=== PATIENT | female | born 1945 | race Caucasian/White ===

== ENCOUNTER 2018-12-13 22:26 | Inpatient (IN) | payer OTHER ==
[~2018-12-13] VITALS: Ht 162.6 cm; Wt 70.8 kg
--- NOTE | 2018-12-13 22:36 | NUR ---
PT BIB AMBULANCE FOR C/O OF A FALL THAT HAPPENED APPROX 30MINS AGO. PER AT BEDSIDE PT FELL APPROX 2 FT OFF THE BED AND STATES HIS IS UNSURE IF PT HIT HER HEAD. PER MEDICS PT IS ON BLOOD THINNERS. PT PERRLA. PT COMPLAINS OF A HEADACHE TO THE OCCIPITAL REGION OF HER HEAD THAT SHE RATES A 6/10, NO OBVIOUS INJURY NOTED. PT HAS NO OTHER COMPLAINTS. PT HYPOTENSIVE WITH A BP IN THE 70'S. PT PLACED ON FULL PLATINUMSMITH. PT IS A/O X4. RESP ARE EQUAL AND UNLABORED. NO ACUTE DISTRESS NOTED. PTS AT BEDSIDE. MD BOOTHE AT BEDSIDE FOR MSE.
--- NOTE | 2018-12-13 22:57 | NUR ---
PT STARTED ON 500MLS OF NS WO PER MD BOOTHE VERBAL ORDER.
[2018-12-13 23:52] LABS: BASOPHIL % 0.6 % (0-2); PLATELET COUNT 273 x10^3mcL (130-400); RED CELL DISTRIBUTION WIDTH 14.3 % (11.5-14.5)
[2018-12-14] VITALS (7 sets, daily range): BP systolic 100–154; BP diastolic 56–75; Ht 162.6 cm; Wt 70.8 kg
[2018-12-14 00:08] LABS: CHLORIDE SERUM 101 mmol/L (98-107); CREATININE SERUM 0.8 mg/dL (0.6-1.0); GLUCOSE SERUM 96 mg/dL (74-106); POTASSIUM SERUM 3.9 mmol/L (3.5-5.1); SODIUM SERUM 133 mmol/L (136-145)
--- NOTE | 2018-12-14 00:10 | NUR ---
PT TRANSPORTED TO CT BY MYSELF AND HAIDER FROM RADIOLOGY. PT KEPT ON FULL POSTING MACHINE OPERATOR. PT TOERLATED WELL.
[2018-12-14 00:14] LABS: ALKALINE PHOSPHATASE 71 U/L (46-116); ALT/SGPT 11 U/L (14-59); AST/SGOT 10 U/L (15-37); BILIRUBIN TOTAL 0.3 mg/dL (0.20-1.00)
[2018-12-14 00:15] LABS: ALBUMIN 2.7 g/dL (3.4-5.0); TOTAL PROTEIN, SERUM 5.5 g/dL (6.4-8.2)
--- NOTE | 2018-12-14 00:20 | NUR ---
XRAY AT BEDSIDE.
--- NOTE | 2018-12-14 00:30 | NUR ---
PER DR BOOTHE, ADMINISTER LEVOFLOXACIN AND CLEOCIN AND DO NOT ADMINISTER ROCEPHIN AND AZITHROMYCIN. NOT GIVEN ON EMAR.
[2018-12-14 01:01] LABS: microscopic required? YES; urine erythrocyte NEGATIVE (NEGATIVE)
[2018-12-14] MEDS ORDERED: LOT20 PO (01:16)
[2018-12-14] MEDS ORDERED: FLUOXETINE40 MG PO (01:16)
[2018-12-14] MEDS ORDERED: TOPAMAX50 M1 PO (01:16)
[2018-12-14] MEDS ORDERED: PROPRANOLOL HYD80 MG PO (01:17)
[2018-12-14] MEDS ORDERED: XARELTO10 M1 PO (01:17)
[2018-12-14] MEDS ORDERED: VERAPAMIL HCL240 MG PO (01:17)
[2018-12-14] MEDS ORDERED: CENTRUM SILVER1 EACH PO (01:18)
[2018-12-14] MEDS ORDERED: OLANZAPINE10 MG PO (01:19)
[2018-12-14] MEDS ORDERED: PAMELOR25 MG PO (01:19)
[2018-12-14] MEDS ORDERED: LIPI20 PO ×2 (01:19→01:21)
[2018-12-14] MEDS ORDERED: LORAZEPAM1 MG PO (01:19)
[2018-12-14] MEDS ORDERED: PROAIR HFA8.5 GM IH (01:19)
[2018-12-14] MEDS ORDERED: TRELEGY ELLIPT1 EACH IH (01:19)
[2018-12-14] MEDS ORDERED: AMBIEN10 MG PO (01:20)
[2018-12-14] MEDS ORDERED: MIRTAZAPINE45 M1 PO (01:20)
[2018-12-14] MEDS ORDERED: BENZTROPINE MESY1 MG PO (01:20)
[2018-12-14] MEDS ORDERED: AMANTADINE HCL100 M1 PO (01:20)
[2018-12-14] MEDS ORDERED: PANTOPRAZOLE SO40 M1 PO (01:20)
[2018-12-14] MEDS ORDERED: SINEMET 25-1001 TAB PO (01:21)
[2018-12-14] MEDS ORDERED: LACTULOSE10 GM/152 PO (01:21)
[2018-12-14] MEDS ORDERED: TERAZOSIN HCL2 MG PO (01:21)
[2018-12-14] MEDS ORDERED: TRAZODONE50 M1 PO (01:21)
[2018-12-14 05:02] LABS: BASOPHIL % 0.6 % (0-2); PLATELET COUNT 268 x10^3mcL (130-400); RED CELL DISTRIBUTION WIDTH 14.9 % (11.5-14.5)
[2018-12-14 05:09] LABS: CALCIUM 8.1 mg/dL (8.5-10.1); CARBON DIOXIDE 22.6 mmol/L (21-32); CHLORIDE SERUM 103 mmol/L (98-107); CREATININE SERUM 0.8 mg/dL (0.6-1.0); GLUCOSE SERUM 91 mg/dL (74-106); SODIUM SERUM 133 mmol/L (136-145)
--- NOTE | 2018-12-14 07:20 | NUR ---
RECIEVED REPORT FROM JESUS MANUEL PUENTE TO ASSUME ALL CARES. ALL QUESTIONS AND CONCERNS ADDRESSED. WILL CONTINUE TO MONITOR.
--- NOTE | 2018-12-14 09:49 | NUR ---
DR. PERALES, RESIDENTS, STACKER OPERATOR AND PRIMARY RN AT BEDSIDE FOR MORNING ROUNDS. PLAN OF CARE DISCUSSED WITH PT AND PT'S . PT TO HAVE SWALLOW EVAL, PHYSICAL THERAPY EVAL, OK FOR OUTSIDE FOOD AND PT STABLE TO TRANSFER TO [facility]. PRIMARY RN AWARE.
--- NOTE | 2018-12-14 13:57 | NUR ---
REPORT GIVEN TO JESUS MANUEL EM PRIOR TO PATIENT BEING TRANSFERRED TO TELE FLOOR. ALL QUESTIONS AND CONCERNS ADDRESSED. PATIENT TRANSFERRED TO TELE VIA BED ATTACHED TO TELE BOX ACCOMPANIED BY NURSE. VSS. ALL BELONGINGS SENT WITH PATIENT. PATIENT'S ACCOMPANIED US TO THE NEW ROOM. NO INCIDENCE OCCURRED.
--- NOTE | 2018-12-14 13:57 | NUR ---
REC ICU TRANSFER VIA GURNEY. AA/O X2 TO SELF AND PLACE, BY HER SIDE. BREATHING EVEN AND UNLABORED ON RA, NO ACUTE RESP DISTRESS OR SOB NOTED, RT PROTOCAL IN PLACE. BOWEL SOUNDS ACTIVE IN ALL FOUR QUADS. VALERA INTACT AND PATIENT, CLOUDY YELLOW URINE NOTED, 700ML/ HR NOTED. OPTIFORM NOTED TO COCCYX AREA DUE TO BLANCHABLE RENDESS. CDI. IV TO THE LFA INTACT AND PATENT, RAC INTACT AND PATENT. WILL CONTINUE TO MONITOR. SCD'S INPLACE.
--- NOTE | 2018-12-14 15:40 | NUR ---
ASSISTED PT WITH RIGHT SIDE REPOSTION, CHANGED DRESS TO COCCYX AREA, CDI. WILL CONTINUE TO MONITOR.
--- NOTE | 2018-12-14 18:40 | NUR ---
PT WAS SEEN FOR DYSPHAGIA. PT WAS ABLE TOS AFELY SWALLOW MS DIET WITH THIN LIQUID WITHOUT S/S OF ASPIRATION. RECOMMENDATION MS DIET WITH THIN LIQUID SMALL BITES AND SIPS ONLY.
--- NOTE | 2018-12-14 18:45 | NUR ---
NO ACUTE CHANGES AT THIS TIME, NO ACUTE RESP DISTRESS OR SOB NOTED. DENIES ANY DISCOMFORT AT THIS TIME. IV TO THE RAC AND LFA INTACT AND PATENT/ BOTH HEPLOCKED. VALERA INTACT AND PATENT DRAINING YELLOW URINE. WILL ENODRSE TO INCOMING RN.
--- NOTE | 2018-12-14 19:10 | NUR ---
RECEIVED PT FROM PREVIOUS SHIFT NURSE. PT AOX2, ORIENTED TO SELF/PLACE. ON TELE #25, SR, HR 70, DENIES CP/PRESSURE. DENIES SOB/DIFFICULTY BREATHING, ON RA. VALREA CATH IN PLACE. BLANCHABLE REDNESS TO COCCYX, OPTIFOAM IN PLACE. IV TO RAC, LFA. INTACT AND PATENT. BED IN LOWEST POSITION. CALL LIGHT WITHIN REACH. WILL CONTINUE TO MONITOR.
[2018-12-14 19:14] LABS: AMPHETAMINE QUAL UR NONE DETECTED (See below)
--- NOTE | 2018-12-15 02:30 | NUR ---
PT RESTING IN BED. RR EVEN AND UNLABORED. IN NO ACUTE DISTRESS. CALL LIGHT WITHIN REACH. BED IN LOWEST POSITION. WILL CONTINUE TO MONITOR.
[2018-12-15 05:36] VITALS: BP 133/73
[2018-12-15 08:25] VITALS: BP 133/75
[2018-12-15 13:26] VITALS: BP 112/63
--- NOTE | 2018-12-15 15:07 | NUR ---
PHYSICAL THERAPY DAILY NOTES CO-SIGN All documentation done by the Phlebotomist for 12/15/18 has been reviewed. I agree with the documentation. Reviewed/Co-Signed by: Juana Dean PT Documentation Done by:CARMEN BARRERA PTA
--- NOTE | 2018-12-15 15:51 | NUR ---
SCREEN FOR LOW ANGIE SCALE AT RISK PRESSURE ULCER INJURY PREVENTION INTERVENTIONS IN PLACE. -TURN AND REPOSITION PATIENT Q 2H OFFLOAD LEFT AND RIGHT HIPS -ASSESS AND MONITOR SKIN CONDITION DURING POSITION CHANGE -OFFLOAD BILATERAL HEELS BY PLACING PILLOWS UNDER CALVES AT ALL TIMES, UNLESS OTHERWISE CONTRAINDICATED -PRESSURE REDISTRIBUTION SURFACE THERAPY -KEEP SKIN CLEAN AND DRY AT ALL TIMES.
[2018-12-15 16:23] VITALS: BP 103/55
[2018-12-15 16:55] LABS: CALCIUM 8.3 mg/dL (8.5-10.1); CARBON DIOXIDE 24.4 mmol/L (21-32); CHLORIDE SERUM 100 mmol/L (98-107); CREATININE SERUM 0.7 mg/dL (0.6-1.0); GLUCOSE SERUM 87 mg/dL (74-106); POTASSIUM SERUM 3.8 mmol/L (3.5-5.1); SODIUM SERUM 132 mmol/L (136-145)
[2018-12-15 17:11] LABS: BASOPHIL % 1.2 % (0-2); PLATELET COUNT 287 x10^3mcL (130-400); RED CELL DISTRIBUTION WIDTH 14.3 % (11.5-14.5)
--- NOTE | 2018-12-15 19:29 | NUR ---
REPORT GIVEN TO FUNDRAISING MANAGER NURSE AT THE BEDSIDE, PT AWAKE AND ALERT FOR REPORT, IN NAD, NO NEW EVENTS TO REPORT. CARE ENDORED
--- NOTE | 2018-12-15 20:00 | NUR ---
RECEIVED PT IN BED, ALERT AND ORIENTED. FORGETFUL AT TIMES. ABLE TO FOLLOW SOME COMMANDS. DENIES HEADACHE/DIZZINESS. RESP. EVEN AND UNLABORED. LUNG SOUNDS CLEAR BILAT. ON ROOM AIR, NO ACUTE DISTRESS NOTED. PACED ON DEMAND ON TELE, DENIES CP. HL X2, INTACT AND PATENT. AFEBRILE AND VITAL SIGNS STABLE.VALERA CATH INTACT AND DRAINING YELLOW COLOR URINE.TURNED AND REPOSIIONED. HS CARE DONE. CALL LIGHT WITHIN REACH. WILL CONTINUE TO MONITOR.
--- NOTE | 2018-12-15 21:24 | NUR ---
TURNED AND REPOSITIONED FOR COMFORT. NO COMPLAINTS NOTED AT THIS TIME. RESTING QUIETLY. CALL LIGHT WITHIN REACH. WILL CONTINUE TO MONITOR.
[2018-12-15 21:32] VITALS: BP 111/66
--- NOTE | 2018-12-15 23:59 | NUR ---
EYES CLOSED, APPEARS ASLEEP, EASILY AROUSABLE. RESP. EVEN AND UNLABORED. NO ACUTE DISTRESS NOTED.CALL LIGHT WITHIN REACH. WILL CONTINUE TO MONITOR.
[2018-12-16 06:04] VITALS: BP 133/68
--- NOTE | 2018-12-16 06:31 | NUR ---
RESP. EVEN AND UNLABORED. ON ROOM AIR, NO ACUTE DISTRESS NOTED. SLEPT WELL, NO SIGNIFICANT CHANGE NOTED IN PT,S CONDITION. AFEBRILE AND VITAL SIGNS STABLE. DUE MEDS GIVEN ORDERED, KYUNG. WELL. TURNED AND REPOSITIONED Q2HRS AND PRN. VALERA CATH INTACT AND PATENT. CARE DONE. KEPT COMFORTABLE. CALL LIGHT WITHIN REACH. WILL CONTINUE TO MONITOR.
[2018-12-16 07:00] LABS: BASOPHIL % 0.4 % (0-2); PLATELET COUNT 276 x10^3mcL (130-400); RED CELL DISTRIBUTION WIDTH 14.2 % (11.5-14.5)
--- NOTE | 2018-12-16 07:07 | NUR ---
RECEIVED REPORT FROM SHANON KEN. PATIENT [id number] COMFORTABLE IN BED. IV TO LFA AND RAC ARE BOTH PATENT AND INTAT. NO REDNESS OR PAIN. PT ON ROOM AIR. NO C/O SOB AND NO DISTRESS NOTED. TELE # [address] PT DENIES CHEST PAIN. VALERA IN PLACE DRAINING YELLOW URINE. ALL QUESTIONS AND CONCERNS ADDRESSED.
[2018-12-16 07:16] LABS: CALCIUM 8.3 mg/dL (8.5-10.1); CARBON DIOXIDE 25.6 mmol/L (21-32); CHLORIDE SERUM 96 mmol/L (98-107); CREATININE SERUM 0.6 mg/dL (0.6-1.0); GLUCOSE SERUM 83 mg/dL (74-106); MAGNESIUM 1.7 mg/dL (1.8-2.4); PHOSPHOROUS 3.1 mg/dL (2.5-4.9); POTASSIUM SERUM 3.8 mmol/L (3.5-5.1); SODIUM SERUM 129 mmol/L (136-145)
[2018-12-16 07:25] VITALS: BP 140/77
--- NOTE | 2018-12-16 07:50 | NUR ---
DR ACKERMAN PAGED TO NOTIFY OF NA 129 AND MAG 1.7 AND REQUEST COVERAGE. AWAITING RESPONSE.
--- NOTE | 2018-12-16 08:45 | NUR ---
IN TO SEE PATIENT AND ADMINISTER MEDICATION. PT WOULD LIKE TO WAIT UNTIL HER ARRIVES TO TAKE MEDICATION. WILL RECHECK IN 30 MINUTES.
--- NOTE | 2018-12-16 10:58 | NUR ---
BLANE FROM FEED MIXER HELPER IN TO SEE PATIENT AND DISCUSS ACCEPTANCE AT [facility]. PT TO TRANSFER TOMORROW. PT AND VERBALIZED UNDERSTANDING AND AGREE ON TRANSFER TO [facility].
[2018-12-16 12:00] VITALS: BP 141/71
--- NOTE | 2018-12-16 12:56 | NUR ---
IN TO SEE PATIENT AND ADMINISTER MEDICATION. PT RESTING COMFORTABLY IN BED ALL OTHER NEEDS MET.
--- NOTE | 2018-12-16 13:58 | NUR ---
IN TO SEE PATIENT AND ASSESS NEEDS AFTER LUNCH. PT RESTING COMFORTABLY IN BED WITH AT BEDSIDE. ALL NEEDS MET.
--- NOTE | 2018-12-16 14:16 | NUR ---
Initial Nutrition Assessment: 253T/A CRISTHIAN KUMAR HR Dx: PNA PMHx: DM, HTN, COPD (2017), Afib on xarelto (2018), s/p pacemaker insertion, Parkinsons disease (2018), dementia, depression, R knee replacement (2016) PSHx: R knee replacement (2016), craniectomy for cerebellum tumor (2015), parathyroidectomy Labs: NA 129L, BUN 4.0L, MG 1.7L, BG 83 WNL Meds: Ativan, Colace, Levaquin, Lipitor, zofran Diet: Mechanically soft-chopped PO Intake: (12/15) lunch 80%, dinner 30%, breakfast 0% Ht: 162.56 cm (64") Wt: 70.7 kg (155#) BMI: 26.8 kg/m2 Bed scale: 157# IBW: 120# (54.5 kg) %IBW: 129 UBW: 144# Age: 73/F Food Allergies: NKFA Skin: redness to coccyx Misha: 16 Edema: none GI: Last BM: 12/14 Per H&P, Pt is a 73 year old female with PMH of DM, HTN, COPD (2017), Afib on xarelto (2018), s/p pacemaker insertion, Parkinsons disease (2018), dementia, depression, R knee replacement (2015), craniectomy for benign cerebellum tumor (2015) came in the hospital after a fall from her bed. RDN Visit (12/16): Patient was alert and oriented. Patient's was at bedside. Patient said that she could not eat anything for breakfast this morning due to poor appetite. FNS received consult for "malnutrition" on 12/14. PagGated recommendations to Dr. Villalobos. Problem with: N/V/D/C: no Problems with: Chewing/Swallowing: none Current appetite: poor Recent wt change: gained 10# (not sure abt duration) %wt change: 7.6% Vitamin/Supplement use: none Special diet at home: none Physical activity: sedentary Nutrition education given: Discussed about importance of fiber, patient did not have any questions or did not want any further information. Food-drug interactions: lipitor- avoid grapefruit Education given: no Estimated Nutritional Needs Based on ideal body weight 55 kg Energy: 0269-3562 kcal/d (25-30 kcal/kg) Protein: 55-66 g/d (1.0-1.2 g/kg)- preserve LBM Fluid: 7281-8633 ml/d (1 ml/kcal) or per doctor Nutrition Diagnosis 1. Inadequate oral intake related to poor appetite as evidenced by self- reported poor PO. Intervention 1. Recommend cardiac (mechanically soft-chopped) diet. Monitor/Evaluate Goal: PO intake at least 75% of estimated needs Monitor: PO intake, Labs, GI function F/U in 2-3 days as high risk 8/4-5
--- NOTE | 2018-12-16 14:17 | NUR ---
1. Recommend cardiac (mechanically soft-chopped) diet.
--- NOTE | 2018-12-16 14:38 | NUR ---
PHYSICAL THERAPY DAILY NOTES CO-SIGN All documentation done by the Butcher for 12/16/18 has been reviewed. I agree with the documentation. Reviewed/Co-Signed by: Juana Dean PT Documentation Done by:CARMEN BARRERA PTA
--- NOTE | 2018-12-16 15:37 | NUR ---
SPOKE WITH [facility]U TO NOTIFY OF URINE CULTURE RESULT E.COLI ESBL. [facility]U TO ASSESS AND ADJUST TREATMENT NEEDED.
[2018-12-16 16:40] VITALS: BP 138/70
--- NOTE | 2018-12-16 18:44 | NUR ---
RECEIVED ORDER TO TRANSFER PATIENT TO [facility]. TELE # 25 REMOVED AND MONITOR NOTIFIED. PT RESTING COMFORTABLY IN BED WITH ALL NEEDS MET. PATIENT IS NOW ON CONTACT ISOLATION FOR E.COLI ESBL IN URINE. ANTIBIOTIC CHANGED PER WU. VALERA IN PLACE DRAINING CLEAR YELLOW URINE. IV TO LFA IS PATENT AND INFUSING NS @ 70 ML/HR. NO REDNESS OR PAIN. PT ON ROOM AIR. NO DISTRESS NOTED. PATIENT SCHEDULED TO TRANSFER TO [facility] TOMORROW. WILL ENDORSE ALL CARE TO ONCOMING NURSE.
--- NOTE | 2018-12-16 19:30 | NUR ---
RECIEVED PT RESTING IN BED WITH NO ACUTE DISTRESS, ASSESSMENT PERFORMED AT THIS TIME, PT IS A/OX 4 NO COMPLAINTS OF ARANDA OR DIZZINESS, PT DENIES PAIN OR SOB AT THIS TIME, IV TO THE LEFT FORARM INFUSING NS AT 70 ML PER HOUR, SAFETY PRECAUTIONS IN PLACE, WILL CONTINUE TO MONITOR
[2018-12-16 20:22] VITALS: BP 136/67
--- NOTE | 2018-12-16 22:30 | NUR ---
PT RESTING COMFORTABLY WITH EYES CLOSED, EASILY AROUSABLE, NO COMPLAINTS OF PAIN OR SOB AT THIS TIME, SAFETY PRECAUTIONS IN PLACE, WILL CONTINUE TO MONITOR
--- NOTE | 2018-12-17 01:00 | NUR ---
PT RESTING IN BED WITH NO ACUTE DISTRESS NOTED AT THIS TIME PT IS EASILY AROUSABLE, NO SOB, RESPIRATIONS EVEN AND UNLABORE, SAFETY PRECAUTIONS IN PLACE, WILL CONTINUE TO MONITOR
--- NOTE | 2018-12-17 05:15 | NUR ---
PT RESTED THROUGH MOST OF THE NIGHT WITH NO ACUTE DISTRESS, PT DENIED SOB OR PAIN THROUGH THE NIGHT, PT HAD 2100 ML OF URINE OUTPUT IN VALERA, SAFETY PRECAUTIONS IN PLACE, WILL CONTINUE TO MONITOR
[2018-12-17 05:23] VITALS: BP 127/86
--- NOTE | 2018-12-17 07:00 | NUR ---
RECEIVED REPORT FROM LAUREN RN, PT RESTING IN BED IN NO ACUTE RESP DISTRESS
--- NOTE | 2018-12-17 07:20 | NUR ---
PT IN BED, IN NO ACURE RESP DISTRESS, VERBAL, DANISH, ABLE TO MAKE NEEDS KNOWN, NO REDNESS/DISCHARGE, NO DROOP FACE/SLURRED SPEECH, PERRLA, RESP EVEN AND NON-LABORED, CHEST RISE SYMMETRICALLY, MEDSURG, AXOX4, DENIED N/V/D/DIZZINESS, DENIED CP/PRESSURE/ARANDA, PALP PULSE, CAP REFILL < 2 SECS, SEE SKIN ASSESSMENT, SKIN D/W/C, IV PATENT AND NO INFILTRATION, BEDBOUND, FC 16FR PATENT AND INFUSING WELL, URINE YELLOW, CLEAR AND NO SEDIMENT, 250ML, UA (+) E.COLI, H[employer]CHO[employer] ARTS TEACHER MORRO MADE AWARE, ABD ROUND AND NON-TENDER TO TOUCH, BS HYPOACTIVE X 4, LAST BM 12/14/18, HIGH SCHOOL INDUSTRIAL ARTS TEACHER MADE AWARE, ALL NEEDS MET AT THIS TIME, SAFETY PROTOCOL FOLLOWED, CONTINUE TO MONITOR
[2018-12-17 08:46] VITALS: BP 154/67
[2018-12-17 08:48] LABS: CALCIUM 8.5 mg/dL (8.5-10.1); CARBON DIOXIDE 26.6 mmol/L (21-32); CHLORIDE SERUM 94 mmol/L (98-107); CREATININE SERUM 0.7 mg/dL (0.6-1.0); GLUCOSE SERUM 84 mg/dL (74-106); POTASSIUM SERUM 3.6 mmol/L (3.5-5.1); SODIUM SERUM 129 mmol/L (136-145)
--- NOTE | 2018-12-17 09:01 | NUR ---
SEEN BY WENDI HOOKER, N/O TO D/C PT, PT AWARE, CONTINUE TO MONITOR
[2018-12-17] MEDS ORDERED: BACTRIM DS1 TAB PO (09:47)
--- NOTE | 2018-12-17 09:54 | NUR ---
AT BEDSIDE, PT IN BED, IN NO ACUTE RESP DISTRESS, QUESTION ASKED AND ANSWERED, NO FURTHER CONCERN NEEDED WHEN ASKED, AWARE OF D/C ORDER, CONTINUE TO MONITOR
--- NOTE | 2018-12-17 09:55 | NUR ---
PT IN BED, IN NO ACUTE REDP DISTRESS, AM MEDS GIVEN PER MD ORDER VIA EMAR, TAKEN WELL, NO ASE NOTD AT THIS TIME, CONTINUE TO MONITOR
[2018-12-17 10:12] VITALS: BP 154/67
--- NOTE | 2018-12-17 11:10 | NUR ---
CALLED TO [facility] AND SPOKE WITH DREA KEN AND MADE AWARE PATIEMT IS GOING TO THEIR FACILITY ON [address]. 1115 CALLED TO [facility] AND SPOKE WITH ASHISH TO ACTIVATE THE WILL CALL.MAKE ARRANGEMENT FOR 1300 SMALL PIECE CUTTER AND AAMIR KEN MADE AWARE.
--- NOTE | 2018-12-17 11:59 | NUR ---
P.T. NOTE ATTEMPTED TO SEE PATIENT FOR P.T., PER SPOUSE PATIENT WILL BE GETTING TRANSFERRED TO SNF AND WILL REFUSE TO BE SEE BY P.T.
--- NOTE | 2018-12-17 12:11 | NUR ---
TRANSFER PAPER SIGNED BY , REPORT GIVEN TO JOSÉ NUÑEZ AT [facility] AT [address] AT [phone]. PT WILL BE TRANSFERED TO ROOM [address] ANGELLA GAN. P/U BY [employer] [facility]SPORT[facility] AT [phone] VIA [employer] AT 1300 ON 12/17/18
--- NOTE | 2018-12-17 12:38 | NUR ---
IV REMOVED TO L FA, IV CATH INTACT, NO ACTIVE BLEEDING NOTED, AT BEDSIDE
--- NOTE | 2018-12-17 13:10 | NUR ---
PT TRANSFERED VIA [facility] BY 2 assistant real estate manager, PT NOT IN ACUTE RESP DISTRESS, WITH PT. DC PACKET GIVEN TO . FC PATENT AND INFUSING WELL. URINE YELLOW CLEAR AND NO SEDIMENT. NOTED 450CC. SKIN PIC TAKEN AND KEPT IN CHART. SKIN D/W/C.
== END 2018-12-17 13:26 | DRG 871 ==
LOC: ED 22:26 → DU 12-14 01:01 → IC 12-14 01:01 → DU 12-14 13:46 → MU 12-16 18:08
PROVIDERS: Emergency Medicine; ADMIT Internal Medicine
DX: A41.9 Sepsis, unspecified organism (principal); J69.0 Pneumonitis due to inhalation of food and vomit; E43 Unspecified severe protein-calorie malnutrition; R65.21 Severe sepsis with septic shock; N39.0 Urinary tract infection, site not specified; E87.1 Hypo-osmolality and hyponatremia; B96.20 Unspecified Escherichia coli [E. coli] as the cause of diseases classified elsewhere; L89.319 Pressure ulcer of right buttock, unspecified stage; I48.91 Unspecified atrial fibrillation; I10 Essential (primary) hypertension; G20 Parkinson's disease; F02.80 Dementia in other diseases classified elsewhere, unspecified severity, without behavioral disturbance, psychotic disturbance, mood disturbance, and anxiety; D64.9 Anemia, unspecified; J44.9 Chronic obstructive pulmonary disease, unspecified; Z68.24 Body mass index [BMI] 24.0-24.9, adult; Z98.1 Arthrodesis status; Z95.0 Presence of cardiac pacemaker; Z96.651 Presence of right artificial knee joint; Z87.891 Personal history of nicotine dependence; Z79.01 Long term (current) use of anticoagulants
CPT/HCPCS: 83880; 92526-GN; 92610; 97110-GP; 97530-GP; G0378; J0696; J1956; J3010; J3370; J3475; J3490; J7030; J7040; J7620; Q0092

== ENCOUNTER 2019-01-23 12:26 | Emergency (ER) | payer OTHER ==
[~2019-01-23] VITALS: Ht 165.1 cm; Wt 68.0 kg
[~2019-01-23 12:26] MED LIST: AMANTADINE HCL100 M1 PO; AMBIEN10 MG PO; BACTRIM DS1 TAB PO; BENZTROPINE MESY1 MG PO; CENTRUM SILVER1 EACH PO; FLUOXETINE40 MG PO; LACTULOSE10 GM/152 PO; LIPI20 PO; LORAZEPAM1 MG PO; LOT20 PO; MIRTAZAPINE45 M1 PO; OLANZAPINE10 MG PO; PAMELOR25 MG PO; PANTOPRAZOLE SO40 M1 PO; PROAIR HFA8.5 GM IH; PROPRANOLOL HYD80 MG PO; SINEMET 25-1001 TAB PO; TERAZOSIN HCL2 MG PO; TOPAMAX50 M1 PO; TRAZODONE50 M1 PO; TRELEGY ELLIPT1 EACH IH; VERAPAMIL HCL240 MG PO; XARELTO10 M1 PO
[2019-01-23 12:30] VITALS: Ht 165.1 cm; Wt 68.0 kg
[2019-01-23 15:32] LABS: microscopic required? YES; urine erythrocyte NEGATIVE (NEGATIVE)
[2019-01-23 19:03] VITALS: BP 112/74
== END 2019-01-23 19:03 | disposition home or self-care (01) ==
LOC: ED 12:26
PROVIDERS: Emergency Medicine
DX: N39.0 Urinary tract infection, site not specified (principal); F41.9 Anxiety disorder, unspecified; Z91.041 Radiographic dye allergy status; Z88.0 Allergy status to penicillin